=== PATIENT | female | born 1980 ===

== ENCOUNTER 2025-09-12 17:35 | Outpatient (CLI) | payer OTHER, SELFPAY | END 2025-09-12 17:36 | disposition home or self-care (01) | LOC: LKVREF 17:36 | PROVIDERS: PCP Pediatrics; Visit Provider Physician Assistant Medical | DX: D64.9 Anemia, unspecified (principal); Z01.818 Encounter for other preprocedural examination | CPT/HCPCS: 82607; 82728; 83540 ==